=== PATIENT | female | born 1955 | race Caucasian/White ===

== ENCOUNTER 2020-06-15 10:16 | Outpatient (CLI) | payer MEDICARE, SELFPAY ==
--- NOTE | 2020-06-15 10:33 | CT_ITS ---
WS: [id number] LDCT LUNG CANCER SCREENING HISTORY: HX OF TOBACCO USE TECHNIQUE: Axial imaging performed from the apices to 1 cm below the costophrenic angles. Coronal and sagittal reformats are submitted with axial MIP series. All CT scans at [facility] use at least one of these dose optimization techniques: automated exposure control; mA and/or kV adjustment per patient size (includes targeted exams where dose is matched to clinical indication); or iterativ e reconstruction. DLP: 54.98 mGy.cm DIvol: 1.58 mGy COMPARISON: None available. Diagnostic quality: Satisfactory Lung Nodules: 3 mm nodule in the RIGHT middle lobe, image 43 of series 601. This may be associated wi th atelectasis and scar. Lungs: Moderate emphysema. There are a few scattered calcified nodules consistent with granulomas. Fo lilliam areas of bronchial wall thickening at the lung bases. No pneumonia. Focal scarring at the lingula and RIGHT middle lobe. Heart: Normal size heart. No pericardial effusion. Atherosclerosis and LEFT anterior descending coron yohana artery. Other findings: Moderate atherosclerosis aorta. No aneurysm. Partially calcified mediastinal and linda r lymph nodes. Hepatic cyst near the falciform ligament measures 1.5 cm. No adrenal mass. Moderate in crease in thoracic kyphosis. Mild anterior wedging of T5 and T11. CT/CT lung screening [id number] IMPRESSION: LUNG-RADS: 2-Benign Appearance or Behavior FOLLOW UP: 12 Month: Continue annual screening with LDCT OTHER FINDINGS (S MODIFIER): None.
== END 2020-06-15 10:17 | disposition home or self-care (01) ==
LOC: RAD 10:20
PROVIDERS: PCP Physician Assistant Medical; Visit Provider Internal Medicine Critical Care Medicine
DX: Z12.2 Encounter for screening for malignant neoplasm of respiratory organs (principal); Z87.891 Personal history of nicotine dependence
CPT/HCPCS: 71271

== ENCOUNTER 2020-07-02 09:09 | Outpatient (CLI) | payer MEDICARE, SELFPAY ==
[2020-07-02 09:58] VITALS: BP 149/97
== END 2020-07-02 09:10 | disposition home or self-care (01) ==
LOC: RT 09:12
PROVIDERS: PCP Physician Assistant Medical; Visit Provider Internal Medicine Critical Care Medicine
DX: J44.9 Chronic obstructive pulmonary disease, unspecified (principal)
CPT/HCPCS: 94618

== ENCOUNTER → 2021-06-03 08:08 | Outpatient (BNVA) | payer MEDICARE, SELFPAY | PROVIDERS: PCP Physician Assistant Medical; Visit Provider Internal Medicine Critical Care Medicine | DX: J44.9 Chronic obstructive pulmonary disease, unspecified (principal); G47.34 Idiopathic sleep related nonobstructive alveolar hypoventilation; J96.11 Chronic respiratory failure with hypoxia; Z87.891 Personal history of nicotine dependence | CPT/HCPCS: 99214 ==

== ENCOUNTER 2021-11-03 11:32 | Outpatient (CLI) | payer MEDICARE, SELFPAY ==
--- NOTE | 2021-11-03 11:41 | CT_ITS ---
WS: [id number] LDCT LUNG CANCER SCREENING TECHNIQUE: Noncontrast CT of the chest with coronal and sagittal reformatted images. CLINICAL INFORMATION: Lung cancer screening COMPARISON: CT June 15, 2020 DLP: 72.74 mGy.cm DIvol: Mean CTDIvol: 1.60 (mGy) All CT scans at [facility] use at least one of these dose optimization techniques: automat ed exposure control; mA and/or kV adjustment per patient size (includes targeted exams where dose is matched to clinical indication); or iterative reconstruction. FINDINGS: Previously described 3 mm nodule RIGHT middle lobe not well seen today. No other suspicious pulmonary parenchymal abnormalities. Moderate chronic emphysematous changes. A few calcified granulomas. No focal pneumonia or pleural fl uid. Fibrosis in the lingula and RIGHT middle lobe. Aortic calcification. Coronary calcification. No mediastinal or hilar lymphadenopathy. 1.5 cm hepatic cyst near the falciform ligament. Chronic appear ing compression superior endplate T11 slightly increased compared to previous with loss of approximat uvaldo 30% vertebral body height anteriorly. No retropulsion. Masslike enlargement RIGHT thyroid gland measuring 3.1 x 3.5 cm partially visualized. Recommend ultr asound for further evaluation. CT/CT lung screening [id number] IMPRESSION: 1. Masslike enlargement RIGHT thyroid gland measuring 3.1 x 3.5 cm partially visualized. Recommend ultrasound for further evaluation 2. Chronic appearing compression superior endplate T11 increased compared to p revious with loss of approximately 30% vertebral body height anteriorly. No ret ropulsion. Recommend correlation with low-back pain. LUNG-RADS: 2S-Benign Appearance or Behavior with Significant Findings FOLLOW UP: 12 Month: Continue annual screening with LDCT
== END 2021-11-03 11:33 | disposition home or self-care (01) ==
LOC: RAD 11:33
PROVIDERS: PCP Physician Assistant Medical; Visit Provider Internal Medicine Critical Care Medicine
DX: Z12.2 Encounter for screening for malignant neoplasm of respiratory organs (principal); Z87.891 Personal history of nicotine dependence
CPT/HCPCS: 71271

== ENCOUNTER → 2021-11-15 08:52 | Outpatient (BNVA) | payer MEDICARE, SELFPAY | PROVIDERS: PCP Physician Assistant Medical; Visit Provider Internal Medicine Critical Care Medicine | DX: J43.2 Centrilobular emphysema (principal); G47.34 Idiopathic sleep related nonobstructive alveolar hypoventilation; J96.11 Chronic respiratory failure with hypoxia; Z87.891 Personal history of nicotine dependence; Z99.81 Dependence on supplemental oxygen; E04.1 Nontoxic single thyroid nodule | CPT/HCPCS: 99214 ==

== ENCOUNTER → 2023-08-11 08:40 | Outpatient (BNVA) | payer MEDICARE, SELFPAY | PROVIDERS: PCP Physician Assistant Medical; Visit Provider Internal Medicine Pulmonary Disease | DX: J44.9 Chronic obstructive pulmonary disease, unspecified (principal); G47.34 Idiopathic sleep related nonobstructive alveolar hypoventilation; J96.11 Chronic respiratory failure with hypoxia; Z87.891 Personal history of nicotine dependence; J43.2 Centrilobular emphysema; Z99.81 Dependence on supplemental oxygen | CPT/HCPCS: 99214 ==